=== PATIENT | male | born 1990 | race Caucasian/White ===

== ENCOUNTER 2022-10-18 11:38 | Observation (INO) | payer OTHER ==
[~2022-10-18] VITALS: Ht 172.7 cm; Wt 81.6 kg
[~2022-10-18 11:38] MED LIST: HYDACE5 PO; IBUP800 PO
[2022-10-18 12:23] LABS: BASOPHILS ABSOLUTE AUTO 0.03 K/mm3 (0.00-0.23); BASOPHILS PERCENT AUTO 0 % (0-2); EOSINOPHILS ABSOLUTE AUTO 0.01 K/mm3 (0.00-0.68); EOSINOPHILS PERCENT AUTO 0 % (0-6); Hemoglobin 15.1 g/dL (13.5-17.5); IMMATURE GRAN ABSOLUTE AUTO 0.04 K/mm3 (0.00-0.10); IMMATURE GRAN PERCENT AUTO 0 % (0-1); LYMPHOCYTES ABSOLUTE AUTO 1.01 K/mm3 (0.84-5.20); LYMPHOCYTES PERCENT AUTO 8 % (21-46); MONOCYTES ABSOLUTE AUTO 0.52 K/mm3 (0.16-1.47); MONOCYTES PERCENT AUTO 4 % (4-13); Mean Corpuscular HGB 29.3 pg (26.0-34.0); Mean Corpuscular HGB Conc 35.1 g/dL (31.5-36.5); Mean Corpuscular Volume 83 fL (80-100); Mean Platelet Volume 9.5 fL (9.1-12.4); NEUTROPHILS ABSOLUTE AUTO 11.12 K/mm3 (1.96-9.15); NEUTROPHILS PERCENT AUTO 87 % (41-73); Platelet Count 248 K/mm3 (150-400); RDW Coefficient Variation 12.4 % (11.7-14.2); RDW Standard Deviation 37.6 fL (35.1-46.3); Red Blood Cell Count 5.16 M/mm3 (4.30-5.90); White Blood Cell Count 12.73 K/mm3 (4.00-11.30)
[2022-10-18 13:22] LABS: Albumin, Blood 4.4 g/dL (3.4-5.0); Albumin/Globulin Ratio 1.2 (0.8-1.8); Bilirubin, Total 0.6 mg/dL (0.1-1.0); Bun/Creatinine Ratio 12.1 (12.0-20.0); Calcium, Blood 9.6 mg/dL (8.5-10.1); Creatinine, Blood 0.83 mg/dL (0.60-1.20); Globulin, Blood 3.8 g/dL (2.2-4.0); Potassium, Blood 3.6 mmol/L (3.5-5.5); Total Protein, Blood 8.2 g/dL (6.4-8.2)
[2022-10-18 16:18] LABS: Source, Urine Clean Catch
[2022-10-18 16:35] LABS: Appearance, Urine Clear (Clear); Bilirubin, Urine Neg (Neg); Blood, Urine 3+ (Neg); Color, Urine Yellow (P-Yellow); Glucose Qualitative, Urine Neg (Neg); Ketones, Urine 4+ (Neg); Leukocyte Esterase, Urine Neg (Neg); Nitrite, Urine Neg (Neg); Protein, Urine 1+ (Neg); Urobilinogen, Urine NORM (Normal)
[2022-10-18 16:47] LABS: Red Blood Cells, Urine 25-50 /hpf (0-2)
[2022-10-18 16:48] LABS: Bacteria Mod /hpf; Hyaline Casts 0-2 /lpf (0-2); Mucus Mod (0-Heavy); Squamous Epithelial Cells Rare /hpf (Few); Yeast/Fungi Urine Rare /hpf
[2022-10-18 21:50] VITALS: BP 108/61
[2022-10-19] VITALS (17 sets, daily range): BP systolic 79–118; BP diastolic 35–93
--- NOTE | 2022-10-19 05:13 | NUR ---
SHIFT SUMMARY AOX4. ADMITTED LAST NIGHT FOR APPENDICITIS. REPORTED 6/10 RLQ ABD PAIN ALONG c ACHY PAIN ALLOVER BODY FROM PREVIOUS RETCHING. MEDICATED c TYLENOL & IV TORADOL, PAIN LEVEL DECREASED TO 2/10. DENIES ANY N/V SINCE ER MEDICATED c COMPAZINE. REPORTS LAST BM YESTERDAY. HAS BEEN NPO SINCE MIDNIGHT FOR PLANNED SURGERY TODAY. REPORTS OCC COLD SWEATS, CLAMMY SKIN, DIAPHORETIC ONLY MILD TEMP OF 99.0 ORALLY. BP SOFT 80'S SYSTOLIC, INFORMED DR HRARIS & HE ORDERED BOLUS NS & INCREASED MAINTANENCE RATE. CALL LIGHT IN REACH & PT ABLE TO MAKE NEEDS KNOWN.
--- NOTE | 2022-10-19 10:35 | NUR ---
PT RECENTLY HERE BY LUCIO. History, Chart, Medications and Allergies reviewed before start of procedure.Lungs clear T/O to Auscultation. Patient confirms NPO status and agrees with scheduled surgery. Pre-Op teaching done. Pt verbalizes understanding.
--- NOTE | 2022-10-19 12:44 | NUR ---
PT ARRIVED BACK TO THE ROOM AT APPROXIMATELY 1140. PT RATES PAIN AT 5/10 UPON ARRIVAL TO THE ROOM. HE REPORTS PAIN IS TOLERABLE AND DENIES THE NEED FOR PAIN MEDICATION AT THIS TIME.
[2022-10-19] MEDS ORDERED: ACET325 PO (18:00)
[2022-10-19] MEDS ORDERED: OXYC5 PO (18:00)
--- NOTE | 2022-10-19 18:39 | NUR ---
DISCHARGE ESCORTED OUT VIA WC. EATING, DRINKING, & VOIDING. REPORTS PAIN TOLERABLE. SCRIPT GIVEN. ESCORTED OUT VIA WC.
== END 2022-10-19 18:37 | disposition home or self-care (01) ==
LOC: ER 11:38 → SURS 11:39 → ER 11:39 → SURS 11:39
PROVIDERS: Student in an Organized Health Care Education/Training Program; Surgery; ADMIT Surgery
PROC: 0DTJ4ZZ Resection of Appendix, Percutaneous Endoscopic Approach (ICD-10-PCS; principal; 2022-10-19 12:00)
DX: K35.891 Other acute appendicitis without perforation, with gangrene (principal); Z72.0 Tobacco use; Z88.5 Allergy status to narcotic agent
CPT/HCPCS: 74177; 80053; 81001; 83690; 85025; 87086; 88304; 93005; 93010; 96361; 96365-59; 96366; 96375; 99285-25; A9270; G0378; J0295; J0780; J1100; J1885; J2405; J2704; J3010; J7030; J7120; Q9967